=== PATIENT | female | born 1975 | race Caucasian/White ===

== ENCOUNTER 2024-12-01 16:18 | Emergency (ER) | payer SELFPAY ==
[2024-12-01] MEDS: Ketorolac 60 MG/2 ML SDV IM ONE (18:29)
[2024-12-01] MEDS: Cyclobenzaprine 10 MG Tab PO ONE (18:29)
== END 2024-12-01 19:51 | disposition home or self-care (01) ==
LOC: JD.ED 16:18
DX: M54.42 Lumbago with sciatica, left side (principal); Z86.16 Personal history of COVID-19; Z88.0 Allergy status to penicillin; Z88.5 Allergy status to narcotic agent
CPT/HCPCS: 96372; 99283; A9270; J1885